=== PATIENT | male | born 1975 | race Caucasian/White ===

== ENCOUNTER 2017-08-10 18:38 | Emergency (ER) | payer BC ==
[2017-08-10 19:02] VITALS: BP 182/87
[2017-08-10] MEDS ORDERED: Tetan/Diph/Pertus SYR(Tdap)* 0.5 ML SYR(BOOSTRIX) use SYR IM ONE (19:33)
[2017-08-10] MEDS ORDERED: Lidocaine 1% MPF* 2 ML VIAL INJ ONE (19:33)
--- NOTE | 2017-08-10 19:33 | UC ---
Laceration HPI - HPI Summary HPI Summary: 42 YEAR OLD MALE PRESENTS WITH LEFT HAND LACERATION. - History Of Current Complaint Chief Complaint: UCTrauma Stated Complaint: LEFT HAND LAC Time Seen by Provider: 08/10/17 19:32 Hx Obtained From: Patient Laceration Location: Hand Mechanism Of Injury: Sharp Trauma Onset/Duration: Sudden Onset Severity: Moderate Pain Scale Used: 0-10 Numeric - 7 Aggravating Factors: Nothing - Allergies/Home Medications Allergies/Adverse Reactions: Allergies Allergy/AdvReac Type Severity Reaction Status Date / Time No Known Allergies Allergy Verified 08/10/17 19:02 PMH/Surg Hx/FS Hx/Imm Hx Previously Healthy: Yes - Surgical History Surgical History: None - Family History Known Family History: Positive: None - Social History Alcohol Use: Occasionally Substance Use Type: None Smoking Status (MU): Light Every Day Tobacco Smoker Type: Cigarettes - Immunization History Most Recent Influenza Vaccination: CURRENT 2016/2017 Most Recent Tetanus Shot: UNCERTAIN Review of Systems Constitutional: Negative Skin: Other - LEFT PALM LACERATION Eyes: Negative ENT: Negative Respiratory: Negative Cardiovascular: Negative Gastrointestinal: Negative Genitourinary: Negative Motor: Negative Neurovascular: Negative Musculoskeletal: Negative Neurological: Negative Psychological: Negative All Other Systems Reviewed And Are Negative: Yes Physical Exam Triage Information Reviewed: Yes Vital Signs: Initial Vital Signs Temp 36.7 C 08/10/17 18:59 Pulse 73 08/10/17 18:59 Resp 18 08/10/17 18:59 BP 182/87 08/10/17 18:59 Pulse Ox 100 08/10/17 18:59 Vital Signs Reviewed: Yes Eye Exam: Normal ENT Exam: Normal Dental Exam: Normal Neck exam: Normal Neck: Positive: 1 Respiratory Exam: Normal Cardiovascular Exam: Normal Abdominal Exam: Normal Musculoskeletal Exam: Normal Neurological Exam: Normal Psychological Exam: Normal Skin: Positive: Other - LEFT PALM LACERATION Laceration Repair - Laceration Repair 1 Description: Linear Laceration Size After Repair: Length (cm) - 2.5 TO 5 CM Modified For Repair: No Type Injection: Local Anesthesia Used: 1.0% Lido Cleansing Completed Via Routine Prep: Yes Irrigation With Pressure Irrigation Device: Yes Closure Material: Sutures - ETHILON 4.0 Closure Method: Single Layer Suture Of: Skin Suture Type: Other - ETHILON 4.0 Laceration Course/Dx - Differential Dx - Laceration/Wound Provider Diagnoses: LEFT THENAR LACERATION Discharge - Discharge Plan Condition: Stable Disposition: HOME Prescriptions: Cephalexin CAP* [Keflex CAP*] 500 mg PO TID #30 cap Patient Education Materials: Laceration (ED) Referrals: No Primary Care Phys,NOPCP [Primary Care Provider] -
== END 2017-08-10 20:22 | disposition home or self-care (01) ==
LOC: UCCORT 18:38
DX: S61.412A Laceration without foreign body of left hand, initial encounter (principal); W45.8XXA Other foreign body or object entering through skin, initial encounter; Y93.9 Activity, unspecified; Y92.9 Unspecified place or not applicable; Z23 Encounter for immunization; F17.210 Nicotine dependence, cigarettes, uncomplicated
CPT/HCPCS: 12002; 90715; 99202; G0463

== ENCOUNTER 2017-08-24 17:41 | Emergency (ER) | payer BC | END 2017-08-24 20:05 | disposition left against medical advice (07) | LOC: UCCORT 17:41 | DX: Z48.02 Encounter for removal of sutures (principal); Z53.21 Procedure and treatment not carried out due to patient leaving prior to being seen by health care provider ==